=== PATIENT | female | born 1985 | race African-American/Black ===

== ENCOUNTER 2016-04-20 21:09 | Emergency (ER) | payer OTHER ==
--- NOTE | 2016-04-20 21:40 | ED Physician Documentation ---
General Adult - HISTORIAN Historian: patient - HPI Stated Complaint: vaginal pain and bleeding Chief Complaint: General Adult Additional Information: Three menstrual periods since 03/21. [place] or heavy lifting causes increased bleeding. Had Merena placed in September. Wants IUD looked at to see if it is causing excess bleeding. Her primary has her on iron supplements because of the bleeding. - ROS CONST: no problems - PAST HX Past History: hypertension Surgeries/Procedures: cholecystectomy, other (Lap and biopsy (endometrial tissue ); x2) Allergies/Adverse Reactions: Allergies Allergy/AdvReac Type Severity Reaction Status Date / Time Penicillins Allergy Verified 04/20/16 21:31 Home Medications: Ambulatory Orders Medication Instructions Recorded NK [NK] 10/03/13 - SOCIAL HX Smoking History: cigarettes (1/2 PPD) Alcohol Use: none Drug Use: none - FAMILY HX Family History: No - VITAL SIGNS Vital Signs: Vital Signs Temp Pulse Resp BP Pulse Ox 98.2 F 82 20 149/78 98 04/20/16 21:31 04/20/16 21:31 04/20/16 21:31 04/20/16 21:31 04/20/16 21:31 - REVIEWED ASSESSMENTS Nursing Assessment Reviewed: Yes Vitals Reviewed: Yes Progress - Progress Progress: Did not do pelvic exam as it would not have yielded useful info. Visualization of string would not determine causation of richa/metrorrhagia. Little blood in toilet. No anemia. ED Results Lab/Radiology - Orders Orders: ED Orders Category Date Time Status CBC/PLATELET/DIFF Routine Lab 04/20/16 Ordered General Adult Physical Exam - PHYSICAL EXAM GENERAL APPEARANCE: no distress EENT: eye inspection normal, ENT inspection normal NECK: normal inspection, supple RESPIRATORY: no resp distress, chest non-tender, breath sounds normal CVS: reg rate & rhythm, heart sounds normal, no murmur ABDOMEN: soft, normal bowel sounds, no distension, non-tender RECTAL: deferred BACK: normal inspection SKIN: warm/dry, normal color EXTREMITIES: normal range of motion (gait and stance), no evidence of injury NEURO: CN's nml as tested, motor nml, sensation nml, cognition normal Discharge Clincal Impression: Dysfunctional uterine bleeding Additional Instructions: See your psychiatric tech as soon as possible. Home Medications: Ambulatory Orders NK [NK] 10/03/13 Condition: Good Disposition: 01 HOME, SELF-CARE Decision to Admit: NO Decision Time: 22:51
[2016-04-20 22:22] LABS: BASOPHILS % 0.3 (0.0-1.5); EOSINOPHILS % 4.1 % (0.0-6.8); LYMPHOCYTES # 2.2 # k/uL (0.6-4.0); MEAN CORPUSCULAR HEMOGLOBIN 27.4 pg (28.0-34.0); MONOCYTES # 0.3 # k/uL (0.0-0.9); MONOCYTES % 6.3 % (0.0-11.0); NEUTROPHILS # 2.1 # k/uL (1.4-7.7)
[2016-04-20 23:18] VITALS: BP 112/72
== END 2016-04-20 23:05 | disposition home or self-care (01) ==
LOC: ED 21:09
DX: N93.8 Other specified abnormal uterine and vaginal bleeding (principal)
CPT/HCPCS: 85025; 99282

== ENCOUNTER 2017-09-04 04:33 | Emergency (ER) | payer OTHER ==
[2017-09-04] MEDS ORDERED: SULFAMETHOXAZOLE/TRIMETHOPRIM 1 EACH TABLET PO ONE (04:53)
[2017-09-04] MEDS ORDERED: IBUPROFEN 400 MG TABLET PO ONE (04:54)
[2017-09-04] MEDS ORDERED: HYDROcodone /APAP 5/325 1 EACH TABLET PO ONE (04:55)
--- NOTE | 2017-09-04 04:59 | ED Physician Documentation ---
Sore Throat/Dental Pain - HISTORIAN Historian: patient - HPI Stated Complaint: dental pain Chief Complaint: Dental Pain Onset: days ago (3-4) Context: Fractured Tooth Associated Symptoms: denies: fever, sore throat Worsened By: heat, cold Further Comments: no - ROS CONST: no problems CVS/RESP: none GI/: denies: problems urinating, nausea, vomiting MS/SKIN/LYMPH: denies: muscle aches, rash, leg swelling, ankle swelling NEURO/PSYCH: none - PAST HX Past History: none Other History: none Immunizations: referred to PCP Allergies/Adverse Reactions: Allergies Allergy/AdvReac Type Severity Reaction Status Date / Time mushroom Allergy Unknown Verified 09/04/17 04:44 Penicillins AdvReac Intermediate Nausea/Vomi Verified 09/04/17 04:44 ting Home Medications: Ambulatory Orders Medication Instructions Recorded NK [NK] 10/03/13 - SOCIAL HX Smoking History: cigarettes Alcohol Use: none Drug Use: none - FAMILY HX Family History: Yes - VITAL SIGNS Vital Signs: Vital Signs Temp Pulse Resp BP Pulse Ox 98.7 F 86 16 154/97 96 09/04/17 04:34 09/04/17 04:34 09/04/17 04:34 09/04/17 04:34 09/04/17 04:34 - REVIEWED ASSESSMENTS Nursing Assessment Reviewed: Yes Vitals Reviewed: Yes Progress - Results/Orders Results/Orders: no testing ordered - Progress Progress: pt. given Bactrim DS, Motrin 800 mg and hydrocodone with APAP 5/325 p.o. in ER Critical Care Note - Critical Care Note Total Time (mins): 0 ED Results Lab/Radiology - Lab Results Lab Results: none ordered - Radiology Radiology Impressions: none ordered - Orders Orders: ED Orders Category Date Time Status HYDROcodone /APAP 5/325 [[place] 5/325] Med 09/04/17 04:55 Once 1 each PO NOW ONE Ibuprofen [Advil] Med 09/04/17 04:54 Once 800 mg PO NOW ONE Sulfamethoxazole/Trimethoprim [Bactrim Ds] Med 09/04/17 04:53 Once 1 each PO NOW ONE Dental Pain Physical Exam - EXAM General Appearance: alert, mild distress Head/Neck: head nml inspection, trachea midline, no lymphadenopathy, thyroid nml Eyes: eyes nml inspection, PERRL Mouth/Throat: lips nml, gums nml, pharynx nml, voice nml, no drooling, no air way problems, no thrush, dental tenderness (left 2nd molar inferior jaw) Ear/Nose: nml inspection Respiratory: no resp. distress, breath sounds nml CVS: reg. rate & rhythm, heart sounds nml Abdomen: soft, no organomegaly, normal bowel sounds, no abdominal bruit, no distension, non-tender Extremities: non-tender, nml ROM Skin: warm/dry, normal color Neuro/Psych: weakness Discharge Clincal Impression: Pain, dental Referrals: Primary Doctor,No [Primary Care Provider] - 2 Days Comments: Discharged home in stable condition with scripts for Meloxicam 7.5 mg 1 pill twice daily #20, Bactrim DS 1 pill twice daily #20, Tizanidine 4 mg 1 pill 4x/ day #20 Condition: Stable Disposition: 01 HOME, SELF-CARE Decision to Admit: NO Decision Time: 05:00
[2017-09-04 06:26] VITALS: BP 154/97
[2017-09-04] MEDS ORDERED: DIPH,PERTUSS(ACELL),TET VAC/PF 0.5 ML DISP.SYRIN IM ONE (14:16)
== END 2017-09-04 05:05 | disposition home or self-care (01) ==
LOC: ED 04:33
DX: K08.89 Other specified disorders of teeth and supporting structures (principal)
CPT/HCPCS: A9270

== ENCOUNTER 2018-10-03 16:16 | Emergency (ER) | payer OTHER ==
--- NOTE | 2018-10-03 16:29 | ED Physician Documentation ---
General Adult - HISTORIAN Historian: patient - HPI Stated Complaint: sore throat and fever since this am Chief Complaint: Fever Onset: hours (8) Timing: still present Severity: mild Further Comments: yes (she states earlier this am she noted she had a fever. She has sinus pressure and sore throat. She took 800 mg of Ibuprofen at 130 pm She felt it did help her symptoms "some" . She denies any sick contacts) - ROS CONST: fever EYES/ENT: sore throat CVS/RESP: none NEURO/PSYCH: headache - PAST HX Past History: hypertension Allergies/Adverse Reactions: Allergies Allergy/AdvReac Type Severity Reaction Status Date / Time mushroom Allergy Unknown Verified 10/03/18 16:44 Penicillins AdvReac Intermediate Nausea/Vomi Verified 10/03/18 16:44 ting Home Medications: Ambulatory Orders Medication Instructions Recorded NK 10/03/13 - SOCIAL HX Smoking History: non-smoker Alcohol Use: none Drug Use: none - FAMILY HX Family History: No - VITAL SIGNS Vital Signs: Vital Signs Temp Pulse Resp BP Pulse Ox 154/97 09/04/17 05:25 - REVIEWED ASSESSMENTS Nursing Assessment Reviewed: Yes Vitals Reviewed: Yes General Adult Physical Exam - PHYSICAL EXAM GENERAL APPEARANCE: no distress EENT: eye inspection normal, no signs of dehydration, TM's nml, pharyngeal erythema, purulent nasal drainage NECK: normal inspection RESPIRATORY: no resp distress, chest non-tender, breath sounds normal CVS: reg rate & rhythm, heart sounds normal ABDOMEN: soft, normal bowel sounds, no distension, non-tender SKIN: warm/dry, normal color EXTREMITIES: non-tender NEURO: oriented X3 Discharge Clincal Impression: Strep sore throat Referrals: Primary Doctor,No [Primary Care Provider] - 2 Days Comments: 1. Azithromycin - take as directed (zpack) 2. Increase fluid intake 3. OTC meds as directed as needed for fever or symptoms 4. See PCP in 2-4 days as needed for follow up 5. Return to ER for any increasing concerns Condition: Stable Disposition: 01 HOME, SELF-CARE Decision to Admit: NO Date of Decison to Admit: 10/03/18 Decision Time: 16:52
[2018-10-03 16:58] VITALS: BP 154/96
== END 2018-10-03 16:56 | disposition home or self-care (01) ==
LOC: ED 16:16
DX: J02.0 Streptococcal pharyngitis (principal)
CPT/HCPCS: 87880; 99282